=== PATIENT | male | born 1970 | race Caucasian/White ===

== ENCOUNTER 2024-01-02 09:57 | Emergency (ER) | payer OTHER ==
[~2024-01-02] VITALS: Ht 175.3 cm; Wt 127.3 kg
[2024-01-02 10:06] VITALS: TEMP 98.4
[2024-01-02 12:11] LABS: TROPONIN I-HIGH SENSITIVITY 11 ng/L (<76)
[2024-01-02 13:15] VITALS: BP 137/73; PULSE 68; RESP 15
== END 2024-01-02 13:31 | disposition home or self-care (01) ==
LOC: EMS 09:57
DX: R07.89 Other chest pain (principal); R19.7 Diarrhea, unspecified; R11.2 Nausea with vomiting, unspecified; R50.9 Fever, unspecified; Z98.52 Vasectomy status
CPT/HCPCS: 71045; 84484; 93005; 99285; 36415-L1; 36415-TC